=== PATIENT | male | born 1945 | race Caucasian/White ===

== ENCOUNTER 2018-02-12 12:00 | Inpatient (IN) ==
[2018-03-23] MEDS ORDERED: Metoprolol Tartrate 25 MG Tablet PO SCH (05:00)
[2018-03-23] MEDS ORDERED: Insulin Regular (For Infusion) 100 UNIT in Sodium Chlor 0.9% Inj 99 ML IV.CONT PRN ×2 (06:19→11:46)
[2018-03-23] MEDS ORDERED: Dextrose 50% in Water 50 ML Vial IV.PUSH PRN ×2 (06:19→11:46)
[2018-03-23] MEDS ORDERED: Chlorhexidine Gluconate 2% 1 Pack (2 Cloths) TOPICAL ONE (06:28)
[2018-03-23] MEDS ORDERED: Metoprolol Tartrate 25 MG Tablet PO ONE (06:28)
[2018-03-23] MEDS ORDERED: Sodium Chloride 0.9% Irr Bot 1,000 ML, Vancomycin Inj 1,000 MG IRRIGATION SCH ×2 (06:30)
[2018-03-23] MEDS ORDERED: Sodium Chlor 0.9% Inj 77.5 ML, Papaverine Inj 60 MG, Nitroglycerin Inj 100 MCG, dilTIAZ... IRRIGATION SCH ×3 (06:30)
[2018-03-23] MEDS ORDERED: Sodium Chlor 0.9% Inj 500 ML IV.SIG ONE (06:30)
[2018-03-23] MEDS ORDERED: Chlorhexidine 4% Topical 120 APPLIC/120 ML Bottle TOPICAL SCH (06:30)
[2018-03-23] MEDS ORDERED: Heparin - SQ 10,000 UNITS/ML Vial ONE ×2 (06:39)
[2018-03-23] MEDS ORDERED: MethylPREDNISolone Sod Succinate Inj 125 MG/2 ML Vial ONE (06:39)
[2018-03-23] MEDS ORDERED: Vancomycin Inj 1,500 MG in Sodium Chlor 0.9% Inj 250 ML IV.SIG SCH (07:00)
[2018-03-23] MEDS ORDERED: Vancomycin Inj 1,500 MG in Sodium Chlor 0.9% Inj 500 ML IV.SIG SCH (07:00)
[2018-03-23] MEDS ORDERED: Albumin Human 25% Inj 50 ML IV.SIG ONE (07:24)
[2018-03-23] MEDS ORDERED: Cardioplegic Irr Soln 2,000 ML IRRIGATION ONE (07:24)
[2018-03-23] MEDS ORDERED: Calcium Chloride Inj 1 GM/10 ML Syringe ONE (07:25)
[2018-03-23] MEDS ORDERED: Heparin 10,000 UNITS/10 ML Vial (for IV use) ONE (07:25)
[2018-03-23] MEDS ORDERED: Potassium Chloride Inj 40 MEQ/20 ML Vial ONE (07:26)
[2018-03-23] MEDS ORDERED: Potassium Chlor 20 mEq Premix 20 MEQ/100 ML PIGGYBACK IV.SIG PRN ×3 (11:46)
[2018-03-23] MEDS ORDERED: fentaNYL Citrate Inj 100 MCG/2 ML Ampul IV.PUSH PRN (11:46)
[2018-03-23] MEDS ORDERED: Metoprolol Inj 5 MG/5 ML Vial IV.PUSH PRN (11:46)
[2018-03-23] MEDS ORDERED: Post-op Orders (for Pharmacy) OTHER STA (11:46)
[2018-03-23] MEDS ORDERED: Calcium Chloride Inj 1 GM/10 ML Syringe IV.PUSH PRN (11:46)
[2018-03-23] MEDS ORDERED: Dexmedetomidine Inj 200 MCG in Sodium Chlor 0.9% Inj 48 ML IV.CONT PRN (11:46)
[2018-03-23] MEDS ORDERED: Albumin Human 5% Inj 250 ML IV.SIG PRN (11:46)
[2018-03-23] MEDS ORDERED: Magnesium Sulfate Inj 2 GM in Sodium Chlor 0.9% Inj 96 ML IV.SIG PRN ×4 (11:46)
[2018-03-23] MEDS ORDERED: Calcium Chloride Inj 1 GM in Sodium Chlor 0.9% Inj 100 ML IV.SIG PRN (11:46)
[2018-03-23] MEDS ORDERED: RESP: Racemic Epinephrine 2.25% 0.5 ML Neb NEB PRN (11:46)
[2018-03-23] MEDS ORDERED: Clevidipine Inj 25 MG/50 ML VIAL IV.CONT PRN (11:46)
--- NOTE | 2018-03-23 11:51 | P.OP ---
- Preoperative Diagnosis (1) CAD (coronary artery disease) (2) Combined systolic and diastolic congestive heart failure (3) Angina pectoris Postoperative Diagnosis: same Date of procedure: 03/23/18 Procedure: CABG x 4 VACA to LAD - fair to poor SVG to OM1 - fair SVG to OM2 - fair SVG to PDA - fair EVH Anesthesia: MICHELE Surgeon: Gloria Glez MD [employer] Bpm Developer: Akbar Pisano Pathology: none sent Operation and Findings: The risks, benefits, complications, treatment options, and expected outcomes were discussed with the patient. The possibilities of reaction to medication, pulmonary aspiration, perforation of viscus, bleeding, recurrent infection, the need for additional procedures, failure to diagnose a condition, and creating a complication requiring transfusion or operation were discussed with the patient. The patient concurred with the proposed plan, giving informed consent. The site of surgery properly noted/marked. The patient was taken to Operating Room, identified as Louis Garcia and the procedure verified as CABG, EVH, CHHAYA. A Time Out was held and the above information confirmed. Standard monitoring lines and Goldman catheter were placed. General anesthesia was induced. The patient was prepped and draped in a sterile fashion. A median sternotomy was performed and electrocautery was used to obtain hemostasis. The left internal mammary artery was procured as a pedicle from the 7th rib to the 1st rib in the usual manner. Simultaneously left greater saphenous vein was procured from the left leg using a minimally invasive endoscopic technique. The vein was prepared for anastomosis and the leg wound was irrigated and closed in 2 layers. The pericardium was opened and a pericardial sling was created using interrupted 0 silk sutures. The patient was heparinized for cardiopulmonary bypass and the distal mammary pedicle was instrumented for anastomosis. The heart was instrumented for cardiopulmonary bypass in the usual manner. Antegrade blood cardioplegia was employed. The patient was placed on cardiopulmonary bypass. An aortic cross-clamp was applied and the heart was arrested using cold blood cardioplegia. Antegrade cardioplegia was administered after he each anastomosis. After adequate arrest, the distal right coronary circulation was investigated and the PDA was opened with a [place] blade and found to be a 1 millimeter diffusely diseased fair target. Saphenous vein was approximated to the PDA artery using a running 7 0 Prolene suture. The graft was measured for length and orientation and the proximal anastomosis was constructed to the ascending aorta using a running 5 0 Prolene suture after creating an aortotomy with a 5 millimeter punch. The OM2 artery was opened with a [place] blade and found to be a 1 millimeter diffusely diseased fair target. Saphenous vein was approximated to the OM2 artery using a running 7 0 Prolene suture. The graft was measured for length and orientation and the proximal anastomosis was constructed to the ascending aorta using a running 5 0 Prolene suture after creating an aortotomy with a 5 millimeter punch. The 1st circumflex marginal artery was then opened with a [place] blade and found to be a 1.5 millimeter fair target. Saphenous vein was approximated to the OM1 artery using a running 7 0 Prolene suture. The graft was measured for length and orientation and was suspended from the pericardium. The distal LAD was opened with a [place] blade and found to be a 1.5 diffusely diseased fair target. The left internal mammary artery was approximated to the LAD using a running 7 0 Prolene suture. The pedicle was attached to the epicardium using interrupted 5 0 silk suture. The patient was systemically rewarmed and received a hotshot dose of warm blood cardioplegia. The aorta was vented and the proximal anastomosis to the OM1 graft was accomplished using a running 5 0 Prolene suture after creating an aortotomy was a 5 millimeter punch. The cross-clamp was removed and all proximal and distal anastomoses were examined for hemostasis. The patient was weaned from cardiopulmonary bypass. Protamine was given. There was no adverse reaction. Decannulation was carried out without incident. Wound was checked for hemostasis which was obtained using electrocautery. A 36 [place] mediastinal and 32 [place] left pleural chest tubes were placed and secured to the skin with 0 silk suture. The sternum was closed with stainless steel wire. The fascia was closed with 1. PDS. The subcutaneous tissue was closed using a running 2-0 Vicryl suture. The skin was closed with 4-0 Monocryl. Sterile dressings were placed. At the end of the operation, all sponge, instruments, and needle counts were correct. The patient was transferred to the CVICU in stable condition. Findings: EF improved from ~25% to ~40% after revascularization XC: 78 min CPB: 90 min Drains: mediastinal x 1 pleural x 1 Complications: none
[2018-03-23] MEDS ORDERED: Potassium Chlor 40 mEq Premix 40 MEQ/100 ML PIGGYBACK ONE (12:19)
[2018-03-23] MEDS ORDERED: fentaNYL Citrate Inj 250 MCG/5 ML Ampul ONE ×2 (12:53)
--- NOTE | 2018-03-23 13:40 | XR ---
EXAM DATE: 03/23/2018 1:37 PM EST AGE/SEX: 72 years / Male INDICATIONS: Cardiac Disease. CLINICAL DATA: This is the patient's initial encounter. Patient reports that signs and symptoms have been present for 1 day and indicates a pain score of Nonresponsive. MEDICAL/SURGICAL HISTORY: Non-responsive. Non-responsive. [place] [facility] [place]. . FINDINGS: Nasogastric tube across the GE junction. Left chest tubes in place without pneumothorax. Sternal wires previous bypass are noted The heart and pulmonary vascularity are normal. CONCLUSION: Satisfactory postoperative chest Electronically signed by: Servando Nugent MD Board Certified Radiologist 03/23/2018 1:39 PM EST
[2018-03-23] MEDS: Amiodarone 200 MG Tablet PO SCH ×2 (14:43→22:05)
[2018-03-23] MEDS: Vancomycin Inj 1,000 MG in Sodium Chlor 0.9% Inj 250 ML IV.SIG SCH (20:13)
[2018-03-24 05:08] LABS: Hematocrit 29.6 % (39.0-51.0); Hemoglobin 10.3 gm/dL (13.0-17.0); Mean Corpuscular HGB Conc 34.7 % (32.0-36.0); Mean Corpuscular Hemoglobin 31.2 pg (27.0-34.0); Mean Platelet Volume 7.6 fL (7.0-11.0); Platelet Count 91 th/mm3 (150-450); Red Blood Count 3.29 mil/mm3 (4.50-5.90); Red Cell Distribution Width 14.6 % (11.6-17.2); White Blood Count 15.7 th/mm3 (4.0-11.0)
--- NOTE | 2018-03-24 05:35 | XR ---
EXAM DATE: 03/24/2018 5:21 AM EST AGE/SEX: 72 years / Male INDICATIONS: Post CABG. CLINICAL DATA: This is the patient's subsequent encounter. Patient reports that signs and symptoms h ave been present for 4 - 6 days and indicates a pain score of 0/10. MEDICAL/SURGICAL HISTORY: Hypertension. Coronary artery disease. CABG. Chest tube, left. [place] [facility] [place] 1[place] SINGLE [place] 03/23/2018. . FINDINGS: A single AP view of the chest demonstrates no interval change. Left subclavian central line, left tho racostomy tube, subxiphoid thoracostomy tube, and median sternotomy wires. Heart is mildly enlarged. No pneumothorax. Mild consolidation within both lung bases which is stable. No effusions. CONCLUSION: Mild bibasilar consolidation. No pneumothorax. Electronically signed by: Brandon Lamas MD Board Certified Radiologist 03/24/2018 5:34 AM EST
[2018-03-24 05:37] LABS: Anion Gap 9 meq/L (5-15); Blood Urea Nitrogen 17 mg/dL (7-18); Calcium 8.4 mg/dL (8.5-10.1); Carbon Dioxide 24.3 meq/L (21.0-32.0); Chloride 108 meq/L (98-107); Glomerular Filtration Rate Greater Than 89 mL/min (>89); Glucose,Random 110 mg/dL (74-106); Potassium 3.9 meq/L (3.5-5.1); Sodium 141 meq/L (136-145)
[2018-03-24] MEDS: Amiodarone 200 MG Tablet PO SCH ×3 (06:34→21:04)
--- NOTE | 2018-03-24 08:11 | P.PNCV ---
- Note Subjective/Hospital Course: 72/ m recent [facility] 01/29/18 70% LM 100% Prox LAD, CX 80%, OM 95% , RCA 100% EF 30%m seen in [facility] office by Dr Glez , requested rescheduling of CABG 2/2 family issues . Now being electively admitted for surgery PMH: ischemic cardiomyopathy, CHF, HLP, HTN, DM EF 25-30% has declined Life vest in past 03/23 surgery : CABG x 4 Objective: Vital Signs - 24 hr 03/23/18 12:36 03/23/18 12:38 03/23/18 13:45 Temperature 96.9 F L 96.9 F L Pulse Rate 73 Respiratory Rate 14 14 Blood Pressure 88/50 L Pulse Oximetry 99 97 03/23/18 14:09 03/23/18 15:00 03/23/18 15:30 Temperature 98.3 F Pulse Rate 74 Respiratory Rate 14 10 L 18 Blood Pressure 103/60 Pulse Oximetry 99 99 98 03/23/18 16:10 03/23/18 17:50 03/23/18 18:54 Temperature Pulse Rate 90 88 Respiratory Rate 18 Blood Pressure Pulse Oximetry 97 03/23/18 19:00 03/23/18 20:40 03/23/18 21:00 Temperature 97.8 F Pulse Rate 85 90 86 Respiratory Rate 20 20 Blood Pressure 125/52 L Pulse Oximetry 96 03/23/18 23:00 03/24/18 00:00 03/24/18 01:00 Temperature 98.2 F Pulse Rate 88 93 H Respiratory Rate 21 21 Blood Pressure 105/42 L Pulse Oximetry 99 03/24/18 03:00 03/24/18 03:56 03/24/18 05:00 Temperature 97.9 F Pulse Rate 93 H 100 H 100 H Respiratory Rate 21 14 Blood Pressure 96/49 L Pulse Oximetry 99 Labs: Laboratory Results - last 12 hr 03/23/18 03/23/18 03/23/18 06:15 19:47 21:54 WBC RBC Hgb Hct MCV MCH MCHC RDW Plt Count MPV Sodium Potassium Chloride Carbon Dioxide Anion Gap BUN Creatinine Estimated GFR POC Glucose 116 H 82 Random Glucose Calcium Magnesium Blood Type A Positive Antibody Screen Negative MTS Gel Crossmatch See Detail 03/23/18 03/24/18 03/24/18 23:32 04:35 04:35 WBC 15.7 H RBC 3.29 L Hgb 10.3 L Hct 29.6 L MCV 90.0 MCH 31.2 MCHC 34.7 RDW 14.6 Plt Count 91 L MPV 7.6 Sodium 141 Potassium 3.9 Chloride 108 H Carbon Dioxide 24.3 Anion Gap 9 BUN 17 Creatinine 0.57 L Estimated GFR Greater than 89 POC Glucose 99 Random Glucose 110 H Calcium 8.4 L Magnesium 2.0 Blood Type Antibody Screen MTS Gel Crossmatch 03/24/18 03/24/18 05:06 07:28 WBC RBC Hgb Hct MCV MCH MCHC RDW Plt Count MPV Sodium Potassium Chloride Carbon Dioxide Anion Gap BUN Creatinine Estimated GFR POC Glucose 83 83 Random Glucose Calcium Magnesium Blood Type Antibody Screen MTS Gel Crossmatch Result Diagrams: 03/24/18 04:35 03/24/18 04:35
[2018-03-24] MEDS ORDERED: Dextrose 50% in Water 50 ML Vial IV.PUSH PRN (08:24)
[2018-03-24] MEDS ORDERED: Bisacodyl 10 MG Supp RECTAL PRN (08:24)
[2018-03-24] MEDS: Vancomycin Inj 1,000 MG in Sodium Chlor 0.9% Inj 250 ML IV.SIG SCH ×2 (08:48→21:05)
--- NOTE | 2018-03-24 09:09 | P.DIET ---
Objective - Diagnosis CABGx 5 03/23/2018 Assessment Assessment: Patient Navigator to provide education. Consult RD if complexities with diet education arise
[2018-03-24] MEDS: Carvedilol 6.25 MG Tablet PO SCH ×2 (09:39→21:04)
[2018-03-24] MEDS: Multivitamin/Minerals Therapeutic Tablet PO SCH (09:39)
[2018-03-24] MEDS: Insulin NovoLOG Aspart Correctional Sugar Inj SQ SCH ×4 (09:40→21:22)
--- NOTE | 2018-03-24 17:14 | P.PNCV ---
- Note Subjective/Hospital Course: 72/ m recent [facility] 01/29/18 70% LM 100% Prox LAD, CX 80%, OM 95% , RCA 100% EF 30%m seen in [facility] office by Dr Glez , requested rescheduling of CABG 2/2 family issues . Now being electively admitted for surgery PMH: ischemic cardiomyopathy, CHF, HLP, HTN, DM EF 25-30% has declined Life vest in past 03/23 surgery : Preoperative Diagnosis (1) CAD (coronary artery disease (2) Combined systolic and diastolic congestive heart failure (3) Angina pectoris Procedure: CABG x 4 VACA to LAD - fair to poor SVG to OM1 - fair SVG to OM2 - fair SVG to PDA - fair EVH crystalloid 2300cc, 500cc celll saver, EBL 1000cc 03/24 extubated after surgery restarted on entresto / post EF 40% on coreg on Amio, ASA, statin transfer to stepdown unit Objective: Vital Signs - 24 hr 03/23/18 17:50 03/23/18 18:54 03/23/18 19:00 Temperature 97.8 F Pulse Rate 88 85 Respiratory Rate 20 Blood Pressure 125/52 L Pulse Oximetry 97 96 03/23/18 20:40 03/23/18 21:00 03/23/18 23:00 Temperature 98.2 F Pulse Rate 90 86 88 Respiratory Rate 20 21 Blood Pressure 105/42 L Pulse Oximetry 99 03/24/18 00:00 03/24/18 01:00 03/24/18 03:00 Temperature 97.9 F Pulse Rate 93 H 93 H Respiratory Rate 21 21 Blood Pressure 96/49 L Pulse Oximetry 99 03/24/18 03:56 03/24/18 05:00 03/24/18 07:00 Temperature 98.7 F Pulse Rate 100 H 100 H 100 H Respiratory Rate 14 16 Blood Pressure Pulse Oximetry 99 03/24/18 11:00 03/24/18 12:00 03/24/18 13:00 Temperature 100 F H Pulse Rate 110 H 103 H 98 H Respiratory Rate 17 Blood Pressure 100/52 L Pulse Oximetry 100 03/24/18 13:32 03/24/18 14:00 03/24/18 15:00 Temperature 98.8 F Pulse Rate 103 H 103 H 105 H Respiratory Rate 18 16 Blood Pressure 97/54 L Pulse Oximetry 99 01/08/19 16:00 Temperature Pulse Rate 94 H Respiratory Rate Blood Pressure Pulse Oximetry GENERAL: A&O x 3 SKIN: Warm and dry. prevena dressing to chest , incision intact to left leg HEAD: Normocephalic. EYES: No scleral icterus. No injection or drainage. NECK: Supple, trachea midline. No JVD or lymphadenopathy. CARDIOVASCULAR: Regular rate and rhythm without murmurs, gallops, or rubs. RESPIRATORY: Breath sounds equal bilaterally. No accessory muscle use. few crackles in bases GASTROINTESTINAL: Abdomen soft, non-tender, nondistended. MUSCULOSKELETAL: No cyanosis, or edema. BACK: Nontender without obvious deformity. No CVA tenderness. Labs: Laboratory Results - last 12 hr 03/23/18 03/24/18 03/24/18 06:15 04:35 04:35 WBC 15.7 H RBC 3.29 L Hgb 10.3 L Hct 29.6 L MCV 90.0 MCH 31.2 MCHC 34.7 RDW 14.6 Plt Count 91 L MPV 7.6 Sodium 141 Potassium 3.9 Chloride 108 H Carbon Dioxide 24.3 Anion Gap 9 BUN 17 Creatinine 0.57 L Estimated GFR Greater than 89 POC Glucose Random Glucose 110 H Calcium 8.4 L Magnesium 2.0 Blood Type A Positive Antibody Screen Negative MTS Gel Crossmatch See Detail 03/24/18 03/24/18 03/24/18 07:28 09:32 14:34 WBC RBC Hgb Hct MCV MCH MCHC RDW Plt Count MPV Sodium Potassium Chloride Carbon Dioxide Anion Gap BUN Creatinine Estimated GFR POC Glucose 83 116 H 193 H Random Glucose Calcium Magnesium Blood Type Antibody Screen MTS Gel Crossmatch Result Diagrams: 03/24/18 04:35 03/24/18 04:35 Telemetry: NSR - Plan (1) S/P CABG x 4 Plan: Neuro: avoid Benzo pain control Resp : pulm toileting nebs ezpap , wean 02 as tolerated CV: restart entresto, add coreg gentle diuresis on amio ASA GI: on GI prophy cardiac/ diabetic diet ENDO: weaned off insulin gtt, on insulin sliding scale PT/ OOB transferred to stepdown
[2018-03-24] MEDS: Docusate Sodium 100 MG Capsule PO SCH (21:05)
[2018-03-25] MEDS: Insulin NovoLOG Aspart Correctional Sugar Inj SQ SCH ×6 (02:37→21:49)
[2018-03-25 05:18] LABS: Baso % (Auto) 0.1 % (0.0-2.0); Eos % (Auto) 0.2 % (0.0-4.0); Hematocrit 27.1 % (39.0-51.0); Hemoglobin 9.4 gm/dL (13.0-17.0); Lymph # (Auto) 0.7 th/mm3 (1.0-4.8); Lymph % (Auto) 7.1 % (9.0-44.0); Mean Corpuscular HGB Conc 34.7 % (32.0-36.0); Mean Corpuscular Hemoglobin 31.8 pg (27.0-34.0); Mean Corpuscular Volume 91.5 fL (80.0-100.0); Mean Platelet Volume 7.7 fL (7.0-11.0); Mono # (Auto) 0.8 th/mm3 (0.0-0.9); Mono % (Auto) 7.9 % (0.0-8.0); Neut # (Auto) 8.7 th/mm3 (1.8-7.7); Neut % (Auto) 84.7 % (16.0-70.0); Platelet Count 89 th/mm3 (150-450); Red Blood Count 2.96 mil/mm3 (4.50-5.90); Red Cell Distribution Width 15.1 % (11.6-17.2); White Blood Count 10.3 th/mm3 (4.0-11.0)
[2018-03-25 05:46] LABS: Anion Gap 5 meq/L (5-15); Blood Urea Nitrogen 24 mg/dL (7-18); Calcium 8.4 mg/dL (8.5-10.1); Carbon Dioxide 27.5 meq/L (21.0-32.0); Chloride 105 meq/L (98-107); Glomerular Filtration Rate Greater Than 89 mL/min (>89); Glucose,Random 114 mg/dL (74-106); Magnesium 2.3 mg/dL (1.5-2.5); Potassium 4.2 meq/L (3.5-5.1); Sodium 137 meq/L (136-145)
[2018-03-25 07:13] LABS: Platelet Morphology Normal (Normal)
[2018-03-25] MEDS: Docusate Sodium 100 MG Capsule PO SCH ×2 (08:52→21:48)
[2018-03-25] MEDS: Multivitamin/Minerals Therapeutic Tablet PO SCH (08:52)
[2018-03-25] MEDS: Carvedilol 6.25 MG Tablet PO SCH (08:53)
[2018-03-25] MEDS: Polyethylene Glycol 3350 17 GM Packet PO SCH (08:53)
[2018-03-25] MEDS: Amiodarone 200 MG Tablet PO SCH ×3 (14:22→21:48)
[2018-03-25] MEDS: Acetaminophen 325 MG Tablet PO PRN (14:23)
--- NOTE | 2018-03-25 14:38 | P.PNCV ---
- Note Subjective/Hospital Course: 72/ m recent [facility] [place] 01/29/18 70% LM 100% Prox LAD, CX 80%, OM 95% , RCA 100% EF 30%m seen in [facility] office by Dr Glez , requested rescheduling of CABG 2/2 family issues . Now being electively admitted for surgery PMH: ischemic cardiomyopathy, CHF, HLP, HTN, DM EF 25-30% has declined Life vest in past 03/23 surgery : Preoperative Diagnosis (1) CAD (coronary artery disease (2) Combined systolic and diastolic congestive heart failure (3) Angina pectoris Procedure: CABG x 4 VACA to LAD - fair to poor SVG to OM1 - fair SVG to OM2 - fair SVG to PDA - fair EVH crystalloid 2300cc, 500cc celll saver, EBL 1000cc 03/24 extubated after surgery restarted on entresto / post EF 40% on coreg on Amio, ASA, statin transfer to stepdown unit 03/25 pt on room air chest tube drained > 200/ 12 hrs / will leave in place eval for removal in am Objective: Vital Signs - 24 hr 03/24/18 15:00 03/24/18 16:00 03/24/18 17:00 Temperature 98.8 F Pulse Rate 105 H 94 H 107 H Respiratory Rate 16 Blood Pressure 97/54 L Pulse Oximetry 99 03/24/18 18:00 03/24/18 19:00 03/24/18 20:00 Temperature 98.9 F Pulse Rate 105 H 112 H 113 H Respiratory Rate 18 Blood Pressure 97/60 L Pulse Oximetry 98 98 03/24/18 21:00 03/24/18 21:47 03/24/18 22:00 Temperature Pulse Rate 109 H 104 H 111 H Respiratory Rate 14 Blood Pressure Pulse Oximetry 97 03/24/18 22:43 03/24/18 23:00 03/25/18 00:00 Temperature 98.5 F Pulse Rate 107 H 105 H Respiratory Rate 17 17 17 Blood Pressure 95/59 L Pulse Oximetry 98 03/25/18 01:00 03/25/18 02:00 03/25/18 02:16 Temperature Pulse Rate 98 H 96 H 94 H Respiratory Rate Blood Pressure Pulse Oximetry 03/25/18 02:37 03/25/18 03:00 03/25/18 04:00 Temperature Pulse Rate 98 H 93 H Respiratory Rate 17 17 Blood Pressure 102/56 L Pulse Oximetry 97 03/25/18 05:00 03/25/18 05:10 03/25/18 07:00 Temperature 97.9 F Pulse Rate 98 H 98 H 104 H Respiratory Rate 18 Blood Pressure 102/59 L Pulse Oximetry 99 03/25/18 08:00 03/25/18 08:28 03/25/18 09:00 Temperature Pulse Rate 93 H 97 H 96 H Respiratory Rate 18 Blood Pressure Pulse Oximetry 98 03/25/18 10:00 03/25/18 11:00 03/25/18 12:00 Temperature 98.1 F Pulse Rate 84 85 86 Respiratory Rate 18 Blood Pressure 83/57 L Pulse Oximetry 96 03/25/18 13:00 Temperature Pulse Rate 82 Respiratory Rate Blood Pressure Pulse Oximetry GENERAL: A&O x 3 SKIN: Warm and dry. prevena in place to chest , incision intact to left leg HEAD: Normocephalic. EYES: No scleral icterus. No injection or drainage. NECK: Supple, trachea midline. No JVD or lymphadenopathy. CARDIOVASCULAR: Regular rate and rhythm without murmurs, gallops, or rubs. RESPIRATORY: Breath sounds equal bilaterally. No accessory muscle use. chest tube in place, no air leak GASTROINTESTINAL: Abdomen soft, non-tender, nondistended. MUSCULOSKELETAL: No cyanosis, or edema. BACK: Nontender without obvious deformity. No CVA tenderness. Labs: Laboratory Results - last 12 hr 03/25/18 03/25/18 03/25/18 05:00 05:00 06:19 WBC 10.3 RBC 2.96 L Hgb 9.4 L Hct 27.1 L MCV 91.5 MCH 31.8 MCHC 34.7 RDW 15.1 Plt Count 89 L MPV 7.7 Prelim Diff (Auto) Slide review pending Neut % (Auto) 84.7 H Lymph % (Auto) 7.1 L [place] % (Auto) 7.9 Eos % (Auto) 0.2 Baso % (Auto) 0.1 Neut # (Auto) 8.7 H Lymph # (Auto) 0.7 L [place] # (Auto) 0.8 Eos # (Auto) 0.0 Baso # (Auto) 0.0 WBC Differential . Diff Scan Auto diff confirmed Differential Comment . Platelet Estimate Low L Platelet Morphology Normal Sodium 137 Potassium 4.2 Chloride 105 Carbon Dioxide 27.5 Anion Gap 5 BUN 24 H Creatinine 0.65 Estimated GFR Greater than 89 POC Glucose 116 H Random Glucose 114 H Calcium 8.4 L Magnesium 2.3 03/25/18 03/25/18 08:17 12:10 WBC RBC Hgb Hct MCV MCH MCHC RDW Plt Count MPV Prelim Diff (Auto) Neut % (Auto) Lymph % (Auto) [place] % (Auto) Eos % (Auto) Baso % (Auto) Neut # (Auto) Lymph # (Auto) [place] # (Auto) Eos # (Auto) Baso # (Auto) WBC Differential Diff Scan Differential Comment Platelet Estimate Platelet Morphology Sodium Potassium Chloride Carbon Dioxide Anion Gap BUN Creatinine Estimated GFR POC Glucose 111 H 136 H Random Glucose Calcium Magnesium Result Diagrams: 03/25/18 05:00 03/25/18 05:00 Telemetry: NSR - Plan (4) S/P CABG x 4 Plan: Neuro: avoid Benzo pain control Resp : pulm toileting nebs ezpap , on room air CV: entresto, add coreg on amio ASA GI: on GI prophy cardiac/ diabetic diet ENDO: , on insulin sliding scale Heme: monitor HGB PT/ OOB
[2018-03-26] MEDS ORDERED: Sod Phosphate/Sod Biphosphate (Adult) Enema 133 ML Bottle RECTAL PRN (06:00)
[2018-03-26] MEDS: Docusate Sodium 100 MG Capsule PO SCH ×2 (08:30→21:43)
[2018-03-26] MEDS: Multivitamin/Minerals Therapeutic Tablet PO SCH (08:30)
[2018-03-26] MEDS: Amiodarone 200 MG Tablet PO SCH ×2 (08:30→21:42)
[2018-03-26] MEDS: Polyethylene Glycol 3350 17 GM Packet PO SCH (08:31)
[2018-03-26] MEDS: Insulin NovoLOG Aspart Correctional Sugar Inj SQ SCH ×4 (08:31→21:42)
--- NOTE | 2018-03-26 13:51 | P.PNCV ---
- Note Subjective/Hospital Course: 72/ m recent [facility] 01/29/18 70% LM 100% Prox LAD, CX 80%, OM 95% , RCA 100% EF 30%m seen in office by Dr Glez , requested rescheduling of CABG 2/2 family issues . Now being electively admitted for surgery PMH: ischemic cardiomyopathy, CHF, HLP, HTN, DM EF 25-30% has declined Life vest in past 03/23 surgery : Preoperative Diagnosis (1) CAD (coronary artery disease (2) Combined systolic and diastolic congestive heart failure (3) Angina pectoris Procedure: CABG x 4 VACA to LAD - fair to poor SVG to OM1 - fair SVG to OM2 - fair SVG to PDA - fair EVH crystalloid 2300cc, 500cc celll saver, EBL 1000cc 03/24 extubated after surgery restarted on entresto / post EF 40% on coreg on Amio, ASA, statin transfer to stepdown unit 03/25 pt on room air chest tube drained > 200/ 12 hrs / will leave in place eval for removal in am 03/26 BP improved, pt feeling better CT 200cc/12 watery serous drainage gentle diuresis hopefully dc tube in am Objective: Vital Signs - 24 hr 03/25/18 14:00 03/25/18 15:00 03/25/18 15:02 Temperature 98 F Pulse Rate 82 88 91 H Respiratory Rate 18 18 Blood Pressure 96/52 L Pulse Oximetry 96 03/25/18 16:00 03/25/18 17:00 03/25/18 18:00 Temperature Pulse Rate 100 H 96 H 90 Respiratory Rate Blood Pressure Pulse Oximetry 03/25/18 19:00 03/25/18 20:00 03/25/18 21:00 Temperature 98.9 F Pulse Rate 86 86 86 Respiratory Rate 17 Blood Pressure 92/52 L Pulse Oximetry 98 98 03/25/18 21:07 03/25/18 22:00 03/25/18 23:00 Temperature 98.6 F Pulse Rate 84 92 H 82 Respiratory Rate 12 16 Blood Pressure 88/52 L Pulse Oximetry 97 100 03/26/18 00:00 03/26/18 01:00 03/26/18 02:00 Temperature Pulse Rate 80 86 80 Respiratory Rate Blood Pressure Pulse Oximetry 03/26/18 03:00 03/26/18 04:00 03/26/18 05:00 Temperature 98 F Pulse Rate 97 H 87 80 Respiratory Rate 18 Blood Pressure 107/63 Pulse Oximetry 98 03/26/18 07:00 03/26/18 08:00 03/26/18 08:44 Temperature 98.1 F Pulse Rate 97 H 100 H 92 H Respiratory Rate 18 16 Blood Pressure 107/57 L Pulse Oximetry 98 98 03/26/18 09:00 03/26/18 10:00 03/26/18 11:00 Temperature 98.4 F Pulse Rate 98 H 92 H 89 Respiratory Rate 18 Blood Pressure 100/53 L Pulse Oximetry 99 03/26/18 12:00 03/26/18 13:00 Temperature Pulse Rate 90 85 Respiratory Rate Blood Pressure Pulse Oximetry GENERAL: A&O x 3 SKIN: Warm and dry. prevena dressing to chest HEAD: Normocephalic. EYES: No scleral icterus. No injection or drainage. NECK: Supple, trachea midline. No JVD or lymphadenopathy. CARDIOVASCULAR: Regular rate and rhythm without murmurs, gallops, or rubs. RESPIRATORY: Breath sounds equal bilaterally. No accessory muscle use. diminished in bases/ chest tube no air leak/ drained 200cc/ 12 hrs GASTROINTESTINAL: Abdomen soft, non-tender, nondistended. MUSCULOSKELETAL: No cyanosis, or edema. BACK: Nontender without obvious deformity. No CVA tenderness. Labs: Laboratory Results - last 12 hr 03/23/18 03/26/18 03/26/18 06:15 08:26 11:57 POC Glucose 103 122 H MTS Gel Crossmatch See Detail Result Diagrams: 03/25/18 05:00 03/25/18 05:00 Telemetry: NSR - Plan (4) S/P CABG x 4 Plan: Neuro: stable pain control Resp : pulm toileting nebs ezpap , on room air CV: entresto, coreg on amio ASA gentle diuresis GI: on GI prophy cardiac/ diabetic diet ENDO: , on insulin sliding scale Heme: monitor HGB / labs in am PT/ OOB
[2018-03-27 04:48] LABS: Hematocrit 26.6 % (39.0-51.0); Hemoglobin 9.3 gm/dL (13.0-17.0); Mean Corpuscular Volume 91.3 fL (80.0-100.0); Mean Platelet Volume 7.6 fL (7.0-11.0); Platelet Count 118 th/mm3 (150-450); Red Blood Count 2.91 mil/mm3 (4.50-5.90); Red Cell Distribution Width 14.5 % (11.6-17.2); White Blood Count 7.3 th/mm3 (4.0-11.0)
[2018-03-27 05:14] LABS: Anion Gap 7 meq/L (5-15); Blood Urea Nitrogen 21 mg/dL (7-18); Calcium 8.4 mg/dL (8.5-10.1); Carbon Dioxide 28.4 meq/L (21.0-32.0); Chloride 102 meq/L (98-107); Glomerular Filtration Rate Greater Than 89 mL/min (>89); Glucose,Random 89 mg/dL (74-106); Magnesium 2.1 mg/dL (1.5-2.5); Potassium 4.1 meq/L (3.5-5.1); Sodium 137 meq/L (136-145)
[2018-03-27] MEDS: Polyethylene Glycol 3350 17 GM Packet PO SCH (08:45)
[2018-03-27] MEDS: Amiodarone 200 MG Tablet PO SCH ×2 (08:45→21:40)
[2018-03-27] MEDS: Docusate Sodium 100 MG Capsule PO SCH ×2 (08:46→21:39)
[2018-03-27] MEDS: Insulin NovoLOG Aspart Correctional Sugar Inj SQ SCH ×4 (08:46→23:21)
[2018-03-27] MEDS: Multivitamin/Minerals Therapeutic Tablet PO SCH (08:46)
--- NOTE | 2018-03-27 10:24 | XR ---
EXAM DATE: 03/27/2018 10:20 AM EST AGE/SEX: 72 years / Male INDICATIONS: . High fluid output from chest tube post CABG. CLINICAL DATA: This is the patient's subsequent encounter. Patient reports that signs and symptoms h ave been present for 4 - 6 days and indicates a pain score of 4/10. MEDICAL/SURGICAL HISTORY: Hypercholesterolemia. Hypertension. CAD. Heart failure. CABG. [place] [facility] [place]. . FINDINGS: Left subclavian central line and left thoracostomy tube are stable in position. A midline chest tube is also noted. The lungs are symmetrically aerated and grossly clear. Cardiac contours are satisfacto ry. CONCLUSION: Satisfactory chest appearance. Electronically signed by: Akbar Barrera MD Board Certified Radiologist 03/27/2018 10:22 AM EST
--- NOTE | 2018-03-27 14:43 | P.PNCV ---
- Note Subjective/Hospital Course: 72/ m recent [facility] 01/29/18 70% LM 100% Prox LAD, CX 80%, OM 95% , RCA 100% EF 30%m seen in office by Dr Glez , requested rescheduling of CABG 2/2 family issues . Now being electively admitted for surgery PMH: ischemic cardiomyopathy, CHF, HLP, HTN, DM EF 25-30% has declined Life vest in past 03/23 surgery : Preoperative Diagnosis (1) CAD (coronary artery disease (2) Combined systolic and diastolic congestive heart failure (3) Angina pectoris Procedure: CABG x 4 VACA to LAD - fair to poor SVG to OM1 - fair SVG to OM2 - fair SVG to PDA - fair EVH crystalloid 2300cc, 500cc celll saver, EBL 1000cc 03/24 extubated after surgery restarted on entresto / post EF 40% on coreg on Amio, ASA, statin transfer to stepdown unit 03/25 pt on room air chest tube drained > 200/ 12 hrs / will leave in place eval for removal in am 03/26 BP improved, pt feeling better CT 200cc/12 watery serous drainage gentle diuresis hopefully dc tube in am 03/27 pt drained > 400cc serous drainage from chest tube yesterday HGB stable will diuresis / recheck labs in am Objective: Vital Signs - 24 hr 03/26/18 15:00 03/26/18 16:00 03/26/18 17:00 Temperature 98.1 F Pulse Rate 83 78 87 Respiratory Rate 18 Blood Pressure 88/51 L Pulse Oximetry 99 03/26/18 18:00 03/26/18 19:00 03/26/18 20:00 Temperature 98.6 F Pulse Rate 91 H 90 86 Respiratory Rate 17 Blood Pressure 106/57 L Pulse Oximetry 100 97 03/26/18 21:00 03/26/18 22:00 03/26/18 23:00 Temperature 98.4 F Pulse Rate 88 88 84 Respiratory Rate 18 Blood Pressure 94/54 L Pulse Oximetry 99 03/27/18 00:00 03/27/18 01:00 03/27/18 02:00 Temperature Pulse Rate 86 82 80 Respiratory Rate Blood Pressure Pulse Oximetry 03/27/18 03:00 03/27/18 04:00 03/27/18 05:00 Temperature 97.6 F Pulse Rate 89 86 89 Respiratory Rate 18 Blood Pressure 102/63 Pulse Oximetry 100 03/27/18 06:00 03/27/18 07:00 03/27/18 08:00 Temperature 97.9 F Pulse Rate 84 88 90 Respiratory Rate 18 Blood Pressure 123/58 L Pulse Oximetry 97 97 03/27/18 09:00 03/27/18 10:00 03/27/18 10:06 Temperature Pulse Rate 90 84 Respiratory Rate Blood Pressure Pulse Oximetry 97 03/27/18 11:00 03/27/18 12:00 03/27/18 13:00 Temperature 98.3 F Pulse Rate 85 86 86 Respiratory Rate 18 Blood Pressure 107/55 L Pulse Oximetry 100 03/27/18 14:00 Temperature Pulse Rate 88 Respiratory Rate Blood Pressure Pulse Oximetry GENERAL: A&O x 3 SKIN: Warm and dry. prevena dressing to chest , incision intact to left leg HEAD: Normocephalic. EYES: No scleral icterus. No injection or drainage. NECK: Supple, trachea midline. No JVD or lymphadenopathy. CARDIOVASCULAR: Regular rate and rhythm without murmurs, gallops, or rubs. +1 edema lower ext RESPIRATORY: Breath sounds equal bilaterally. No accessory muscle use. chest tube no air leak / GASTROINTESTINAL: Abdomen soft, non-tender, nondistended. MUSCULOSKELETAL: No cyanosis, or edema. BACK: Nontender without obvious deformity. No CVA tenderness. Labs: Laboratory Results - last 12 hr 03/27/18 03/27/18 03/27/18 04:15 04:15 07:49 WBC 7.3 RBC 2.91 L Hgb 9.3 L Hct 26.6 L MCV 91.3 MCH 32.0 MCHC 35.0 RDW 14.5 Plt Count 118 L D MPV 7.6 Sodium 137 Potassium 4.1 Chloride 102 Carbon Dioxide 28.4 Anion Gap 7 BUN 21 H Creatinine 0.68 Estimated GFR Greater than 89 POC Glucose 94 Random Glucose 89 Calcium 8.4 L Magnesium 2.1 03/27/18 12:00 WBC RBC Hgb Hct MCV MCH MCHC RDW Plt Count MPV Sodium Potassium Chloride Carbon Dioxide Anion Gap BUN Creatinine Estimated GFR POC Glucose 123 H Random Glucose Calcium Magnesium Result Diagrams: 03/27/18 04:15 03/27/18 04:15 - Plan (4) S/P CABG x 4 Plan: Neuro: stable pain control Resp : pulm toileting nebs ezpap , on room air CV: entresto, coreg on amio ASA scheduled diuresis GI: on GI prophy cardiac/ diabetic diet ENDO: , on insulin sliding scale Heme: monitor HGB / labs in am PT/ OOB
[2018-03-28 05:04] LABS: Hematocrit 27.4 % (39.0-51.0); Hemoglobin 9.5 gm/dL (13.0-17.0); Mean Corpuscular HGB Conc 34.9 % (32.0-36.0); Mean Corpuscular Hemoglobin 31.9 pg (27.0-34.0); Mean Corpuscular Volume 91.6 fL (80.0-100.0); Mean Platelet Volume 7.5 fL (7.0-11.0); Platelet Count 156 th/mm3 (150-450); Red Blood Count 2.99 mil/mm3 (4.50-5.90); Red Cell Distribution Width 14.6 % (11.6-17.2); White Blood Count 7.4 th/mm3 (4.0-11.0)
[2018-03-28 05:08] LABS: Anion Gap 6 meq/L (5-15); Blood Urea Nitrogen 16 mg/dL (7-18); Calcium 8.1 mg/dL (8.5-10.1); Carbon Dioxide 29.6 meq/L (21.0-32.0); Chloride 103 meq/L (98-107); Glomerular Filtration Rate Greater Than 89 mL/min (>89); Glucose,Random 90 mg/dL (74-106); Potassium 4.3 meq/L (3.5-5.1); Sodium 139 meq/L (136-145)
[2018-03-28] MEDS: Polyethylene Glycol 3350 17 GM Packet PO SCH (08:36)
[2018-03-28] MEDS: Amiodarone 200 MG Tablet PO SCH ×2 (08:37→20:18)
[2018-03-28] MEDS: Docusate Sodium 100 MG Capsule PO SCH ×2 (08:37→20:30)
[2018-03-28] MEDS: Multivitamin/Minerals Therapeutic Tablet PO SCH (08:38)
[2018-03-28] MEDS: Insulin NovoLOG Aspart Correctional Sugar Inj SQ SCH ×4 (08:39→20:19)
--- NOTE | 2018-03-28 11:19 | P.PNCV ---
- Note CVT: Post Op Day #: 5 Subjective/Hospital Course: 72/ m recent [facility] 01/29/18 70% LM 100% Prox LAD, CX 80%, OM 95% , RCA 100% EF 30%m seen in office by Dr Glez , requested rescheduling of CABG 2/2 family issues . Now being electively admitted for surgery PMH: ischemic cardiomyopathy, CHF, HLP, HTN, DM EF 25-30% has declined Life vest in past 03/23 surgery : Preoperative Diagnosis (1) CAD (coronary artery disease (2) Combined systolic and diastolic congestive heart failure (3) Angina pectoris Procedure: CABG x 4 VACA to LAD - fair to poor SVG to OM1 - fair SVG to OM2 - fair SVG to PDA - fair EVH crystalloid 2300cc, 500cc celll saver, EBL 1000cc 03/24 extubated after surgery restarted on entresto / post EF 40% on coreg on Amio, ASA, statin transfer to stepdown unit 03/25 pt on room air chest tube drained > 200/ 12 hrs / will leave in place eval for removal in am 03/26 BP improved, pt feeling better CT 200cc/12 watery serous drainage gentle diuresis hopefully dc tube in am 03/27 pt drained > 400cc serous drainage from chest tube yesterday HGB stable will diuresis / recheck labs in am 03/28/18 No complaints, doing well ~250ml/12hrs from chest tubes Objective: Vital Signs - 24 hr 03/27/18 12:00 03/27/18 13:00 03/27/18 14:00 Temperature Pulse Rate 86 86 88 Respiratory Rate Blood Pressure Pulse Oximetry 03/27/18 15:00 03/27/18 16:00 03/27/18 17:00 Temperature 98.4 F Pulse Rate 93 H 78 86 Respiratory Rate 18 Blood Pressure 100/51 L Pulse Oximetry 100 03/27/18 18:00 03/27/18 19:00 03/27/18 20:00 Temperature 98.5 F Pulse Rate 86 90 92 H Respiratory Rate 20 Blood Pressure 98/57 L Pulse Oximetry 100 100 03/27/18 21:00 03/27/18 22:00 03/27/18 23:00 Temperature 97.8 F Pulse Rate 86 94 H 90 Respiratory Rate 18 Blood Pressure 123/64 Pulse Oximetry 100 03/28/18 00:00 03/28/18 01:00 03/28/18 02:00 Temperature Pulse Rate 90 84 82 Respiratory Rate Blood Pressure Pulse Oximetry 03/28/18 03:00 03/28/18 04:00 03/28/18 05:00 Temperature 98.4 F Pulse Rate 80 82 84 Respiratory Rate 16 Blood Pressure 123/64 Pulse Oximetry 97 03/28/18 06:00 03/28/18 07:00 03/28/18 08:00 Temperature 98.2 F Pulse Rate 86 84 Respiratory Rate 16 Blood Pressure 92/64 L Pulse Oximetry 98 98 Labs: Laboratory Results - last 12 hr 03/28/18 03/28/18 03/28/18 04:35 04:35 07:36 WBC 7.4 RBC 2.99 L Hgb 9.5 L Hct 27.4 L MCV 91.6 MCH 31.9 MCHC 34.9 RDW 14.6 Plt Count 156 D MPV 7.5 Sodium 139 Potassium 4.3 Chloride 103 Carbon Dioxide 29.6 Anion Gap 6 BUN 16 Creatinine 0.75 Estimated GFR Greater than 89 POC Glucose 111 H Random Glucose 90 Calcium 8.1 L Magnesium 2.0 Result Diagrams: 03/28/18 04:35 03/28/18 04:35 Imaging: Chest X-Ray 03/27/18 00:00 CONCLUSION: Satisfactory chest appearance. Cardiovascular: RRR Telemetry: NSR Pulmonary: CTA GI/: NABS Incision: dry and intact CT: as above - Plan (4) S/P CABG x 4 Plan: Neuro: stable pain control Resp : pulm toileting nebs ezpap , on room air CV: entresto, coreg on amio ASA scheduled diuresis GI: on GI prophy cardiac/ diabetic diet ENDO: , on insulin sliding scale Heme: monitor HGB / labs in am PT/ OOB D/C home after chest tube removal Chest tubes still draining too much to pull Diurese Encourage ambulation
[2018-03-28] MEDS: Acetaminophen 325 MG Tablet PO PRN ×2 (17:06→23:50)
[2018-03-29] MEDS: Docusate Sodium 100 MG Capsule PO SCH ×2 (09:07→20:57)
[2018-03-29] MEDS: Amiodarone 200 MG Tablet PO SCH ×2 (09:08→20:57)
[2018-03-29] MEDS: Multivitamin/Minerals Therapeutic Tablet PO SCH (09:08)
[2018-03-29] MEDS: Polyethylene Glycol 3350 17 GM Packet PO SCH (11:39)
[2018-03-29] MEDS: Insulin NovoLOG Aspart Correctional Sugar Inj SQ SCH ×4 (11:39→20:57)
--- NOTE | 2018-03-29 12:47 | P.PNCV ---
- Note CVT: Post Op Day #: 6 Subjective/Hospital Course: 72/ m recent [facility] 01/29/18 70% LM 100% Prox LAD, CX 80%, OM 95% , RCA 100% EF 30%m seen in office by Dr Glez , requested rescheduling of CABG 2/2 family issues . Now being electively admitted for surgery PMH: ischemic cardiomyopathy, CHF, HLP, HTN, DM EF 25-30% has declined Life vest in past 03/23 surgery : Preoperative Diagnosis (1) CAD (coronary artery disease (2) Combined systolic and diastolic congestive heart failure (3) Angina pectoris Procedure: CABG x 4 VACA to LAD - fair to poor SVG to OM1 - fair SVG to OM2 - fair SVG to PDA - fair EVH crystalloid 2300cc, 500cc celll saver, EBL 1000cc 03/24 extubated after surgery restarted on entresto / post EF 40% on coreg on Amio, ASA, statin transfer to stepdown unit 03/25 pt on room air chest tube drained > 200/ 12 hrs / will leave in place eval for removal in am 03/26 BP improved, pt feeling better CT 200cc/12 watery serous drainage gentle diuresis hopefully dc tube in am 03/27 pt drained > 400cc serous drainage from chest tube yesterday HGB stable will diuresis / recheck labs in am 03/28/18 No complaints, doing well ~250ml/12hrs from chest tubes 03/29/18 No complaints, doing well Continues to drain serous fluid from chest tubes - 160ml/12hrs Objective: Vital Signs - 24 hr 03/28/18 13:00 03/28/18 13:08 03/28/18 14:00 Temperature Pulse Rate 80 80 Respiratory Rate Blood Pressure Pulse Oximetry 95 03/28/18 15:00 03/28/18 16:00 03/28/18 17:00 Temperature 99.4 F Pulse Rate 81 83 90 Respiratory Rate 16 Blood Pressure 103/55 L Pulse Oximetry 100 03/28/18 18:00 03/28/18 19:00 03/28/18 20:00 Temperature 97.9 F Pulse Rate 84 77 82 Respiratory Rate 18 Blood Pressure 102/55 L Pulse Oximetry 99 99 03/28/18 21:00 03/28/18 22:00 03/28/18 23:00 Temperature 97.9 F Pulse Rate 80 80 84 Respiratory Rate 18 Blood Pressure 103/55 L Pulse Oximetry 97 03/29/18 00:00 03/29/18 01:00 03/29/18 02:00 Temperature Pulse Rate 80 78 78 Respiratory Rate 20 Blood Pressure Pulse Oximetry 03/29/18 03:00 03/29/18 04:00 03/29/18 05:00 Temperature 97.2 F L Pulse Rate 75 82 78 Respiratory Rate 18 Blood Pressure 102/55 L Pulse Oximetry 98 03/29/18 06:00 03/29/18 07:00 03/29/18 08:00 Temperature 97.6 F Pulse Rate 76 84 Respiratory Rate 18 Blood Pressure 124/59 L Pulse Oximetry 98 99 03/29/18 11:00 Temperature 97.5 F L Pulse Rate 84 Respiratory Rate 18 Blood Pressure 113/56 L Pulse Oximetry 98 Labs: Laboratory Results - last 12 hr 03/29/18 03/29/18 08:05 11:38 POC Glucose 98 92 Result Diagrams: 03/28/18 04:35 03/28/18 04:35 Imaging: Chest X-Ray 03/27/18 00:00 CONCLUSION: Satisfactory chest appearance. Cardiovascular: RRR Pulmonary: CTA GI/: NABS Incision: dry and intact - Plan (4) S/P CABG x 4 Plan: Neuro: stable pain control Resp : pulm toileting nebs ezpap , on room air CV: entresto, coreg on amio ASA scheduled diuresis GI: on GI prophy cardiac/ diabetic diet ENDO: , on insulin sliding scale Heme: monitor HGB / labs in am PT/ OOB Continue chest tubes D/C when they are out
[2018-03-29] MEDS: Acetaminophen 325 MG Tablet PO PRN (16:31)
[2018-03-30] MEDS: Amiodarone 200 MG Tablet PO SCH ×2 (08:33→20:07)
[2018-03-30] MEDS: Insulin NovoLOG Aspart Correctional Sugar Inj SQ SCH ×3 (08:34→20:06)
[2018-03-30] MEDS: Docusate Sodium 100 MG Capsule PO SCH ×2 (08:34→20:07)
[2018-03-30] MEDS: Multivitamin/Minerals Therapeutic Tablet PO SCH (08:34)
[2018-03-30] MEDS: Polyethylene Glycol 3350 17 GM Packet PO SCH (08:35)
[2018-03-30 14:58] LABS: Calcium 8.7 mg/dL (8.5-10.1); Carbon Dioxide 29.1 meq/L (21.0-32.0); Magnesium 2.1 mg/dL (1.5-2.5); Potassium 3.7 meq/L (3.5-5.1)
--- NOTE | 2018-03-30 15:13 | P.PNCV ---
- Note Subjective/Hospital Course: 72/ m recent [facility] 01/29/18 70% LM 100% Prox LAD, CX 80%, OM 95% , RCA 100% EF 30%m seen in office by Dr Glez , requested rescheduling of CABG 2/2 family issues . Now being electively admitted for surgery PMH: ischemic cardiomyopathy, CHF, HLP, HTN, DM EF 25-30% has declined Life vest in past 03/23 surgery : Preoperative Diagnosis (1) CAD (coronary artery disease (2) Combined systolic and diastolic congestive heart failure (3) Angina pectoris Procedure: CABG x 4 VACA to LAD - fair to poor SVG to OM1 - fair SVG to OM2 - fair SVG to PDA - fair EVH crystalloid 2300cc, 500cc celll saver, EBL 1000cc 03/24 extubated after surgery restarted on entresto / post EF 40% on coreg on Amio, ASA, statin transfer to stepdown unit 03/25 pt on room air chest tube drained > 200/ 12 hrs / will leave in place eval for removal in am 03/26 BP improved, pt feeling better CT 200cc/12 watery serous drainage gentle diuresis hopefully dc tube in am 03/27 pt drained > 400cc serous drainage from chest tube yesterday HGB stable will diuresis / recheck labs in am 03/28/18 No complaints, doing well ~250ml/12hrs from chest tubes 03/29/18 No complaints, doing well Continues to drain serous fluid from chest tubes - 160ml/12hrs 03/30 chest tube dc without difficulty f/u CXR pending in am continue diuresis on entresto , BB , ASA eval for dc in am Objective: Vital Signs - 24 hr 03/29/18 16:00 03/29/18 17:00 03/29/18 18:00 Temperature Pulse Rate 83 83 82 Respiratory Rate Blood Pressure Pulse Oximetry 03/29/18 19:00 03/29/18 20:00 03/29/18 20:10 Temperature 98.3 F Pulse Rate 87 86 Respiratory Rate 18 Blood Pressure 105/57 L Pulse Oximetry 98 96 03/29/18 21:00 03/29/18 22:00 03/29/18 23:00 Temperature 98.3 F Pulse Rate 80 82 85 Respiratory Rate 18 Blood Pressure 101/55 L Pulse Oximetry 97 03/30/18 00:00 03/30/18 01:00 03/30/18 02:00 Temperature Pulse Rate 80 76 76 Respiratory Rate Blood Pressure Pulse Oximetry 03/30/18 03:00 03/30/18 04:00 03/30/18 05:00 Temperature 98.0 F Pulse Rate 77 80 86 Respiratory Rate 18 Blood Pressure 97/59 L Pulse Oximetry 97 03/30/18 06:00 03/30/18 07:00 03/30/18 08:00 Temperature 98.0 F Pulse Rate 84 89 90 Respiratory Rate 18 Blood Pressure 124/61 Pulse Oximetry 100 100 03/30/18 09:00 03/30/18 10:00 03/30/18 10:57 Temperature Pulse Rate 96 H 92 H Respiratory Rate Blood Pressure Pulse Oximetry 98 03/30/18 11:00 03/30/18 12:00 03/30/18 13:00 Temperature 98.1 F Pulse Rate 92 H 97 H 76 Respiratory Rate 18 Blood Pressure 147/86 H Pulse Oximetry 100 03/30/18 14:00 03/30/18 15:00 Temperature 98.4 F Pulse Rate 80 85 Respiratory Rate 18 Blood Pressure 122/63 Pulse Oximetry 100 GENERAL: A&O x 3 SKIN: Warm and dry. prevena dressing to chest HEAD: Normocephalic. EYES: No scleral icterus. No injection or drainage. NECK: Supple, trachea midline. No JVD or lymphadenopathy. CARDIOVASCULAR: Regular rate and rhythm without murmurs, gallops, or rubs. RESPIRATORY: Breath sounds equal bilaterally. No accessory muscle use. faint basilar crackles GASTROINTESTINAL: Abdomen soft, non-tender, nondistended. MUSCULOSKELETAL: No cyanosis, or edema. BACK: Nontender without obvious deformity. No CVA tenderness. Labs: Laboratory Results - last 12 hr 03/30/18 03/30/18 03/30/18 07:34 11:45 12:47 Sodium 136 Potassium 3.7 Chloride 98 Carbon Dioxide 29.1 Anion Gap 9 BUN 17 Creatinine 0.89 Estimated GFR 84 L POC Glucose 116 H 101 Random Glucose 113 H Calcium 8.7 Magnesium 2.1 Result Diagrams: 03/28/18 04:35 03/30/18 12:47 Telemetry: NSR - Plan (4) S/P CABG x 4 Plan: Neuro: stable pain control Resp : pulm toileting nebs ezpap , on room air chest tubes dc without difficulty f/u CXR in am CV: entresto, coreg on amio ASA scheduled diuresis GI: on GI prophy cardiac/ diabetic diet ENDO: , on insulin sliding scale Heme: monitor HGB / labs in am PT/ OOB dc home in am
--- NOTE | 2018-03-30 15:26 | P.DS ---
Date of admission: 03/23/18 05:42 Primary care physician: Servando Matthews Attending physician on discharge: Gloria Glez Anticipated date of discharge: 03/31/18 Brief History from admission: 72/ m recent [facility] 01/29/18 70% LM 100% Prox LAD, CX 80%, OM 95% , RCA 100% EF 30%m seen in office by Dr Glez , requested rescheduling of CABG 2/2 family issues . Now being electively admitted for surgery PMH: ischemic cardiomyopathy, CHF, HLP, HTN, DM EF 25-30% has declined Life vest in past DS: Diagnosis - Discharge Diagnosis (1) CAD (coronary artery disease) Status: Acute (2) Combined systolic and diastolic congestive heart failure Status: Chronic (3) Angina pectoris Status: Acute (4) S/P CABG x 4 Status: Acute (5) Diabetes mellitus Status: Chronic (6) Acute blood loss anemia Status: Acute DS: Medications - Discharge Medications Prescriptions: amiodarone 200 mg PO Q12HR #28 tab carvedilol [Coreg] 3.125 mg PO BID #60 tab docusate sodium [DOK] 100 mg PO BID #30 cap furosemide 40 mg PO DAILY #30 tab zlwdaehh-jxzs-KP-calcium-mins [Thera M Plus (ferrous fumarat)] 1 tab PO DAILY # 30 tab oxycodone-acetaminophen 1 tab PO Q4H PRN #40 tab PRN Reason: Pain Scale 1 To 5 sacubitril-valsartan [Entresto] 1 tab PO BID #60 tab DS: Summary Hospital Course: 03/23 surgery : Preoperative Diagnosis (1) CAD (coronary artery disease (2) Combined systolic and diastolic congestive heart failure (3) Angina pectoris Procedure: CABG x 4 VACA to LAD - fair to poor SVG to OM1 - fair SVG to OM2 - fair SVG to PDA - fair EVH crystalloid 2300cc, 500cc celll saver, EBL 1000cc 03/24 extubated after surgery restarted on entresto / post EF 40% on coreg on Amio, ASA, statin transfer to stepdown unit 03/25 pt on room air chest tube drained > 200/ 12 hrs / will leave in place eval for removal in am 03/26 BP improved, pt feeling better CT 200cc/12 watery serous drainage gentle diuresis hopefully dc tube in am 03/27 pt drained > 400cc serous drainage from chest tube yesterday HGB stable will diuresis / recheck labs in am 03/28/18 No complaints, doing well ~250ml/12hrs from chest tubes 03/29/18 No complaints, doing well Continues to drain serous fluid from chest tubes - 160ml/12hrs 03/30 chest tube dc without difficulty f/u CXR pending in am continue diuresis on entresto , BB , ASA eval for dc in am - Time Spent with Patient Total time spent providing and/or coordinating discharge services: Greater than 30 minutes - Quality: VTE Deep Vein Thrombosis/Pulmonary Embolism Present on Admission: No Exam Vital signs: Vital Signs 03/29/18 16:00 03/29/18 17:00 03/29/18 18:00 Temperature Pulse Rate 83 83 82 Respiratory Rate Blood Pressure Pulse Oximetry 03/29/18 19:00 03/29/18 20:00 03/29/18 20:10 Temperature 98.3 F Pulse Rate 87 86 Respiratory Rate 18 Blood Pressure 105/57 L Pulse Oximetry 98 96 03/29/18 21:00 03/29/18 22:00 03/29/18 23:00 Temperature 98.3 F Pulse Rate 80 82 85 Respiratory Rate 18 Blood Pressure 101/55 L Pulse Oximetry 97 03/30/18 00:00 03/30/18 01:00 03/30/18 02:00 Temperature Pulse Rate 80 76 76 Respiratory Rate Blood Pressure Pulse Oximetry 03/30/18 03:00 03/30/18 04:00 03/30/18 05:00 Temperature 98.0 F Pulse Rate 77 80 86 Respiratory Rate 18 Blood Pressure 97/59 L Pulse Oximetry 97 03/30/18 06:00 03/30/18 07:00 03/30/18 08:00 Temperature 98.0 F Pulse Rate 84 89 90 Respiratory Rate 18 Blood Pressure 124/61 Pulse Oximetry 100 100 03/30/18 09:00 03/30/18 10:00 03/30/18 10:57 Temperature Pulse Rate 96 H 92 H Respiratory Rate Blood Pressure Pulse Oximetry 98 03/30/18 11:00 03/30/18 12:00 03/30/18 13:00 Temperature 98.1 F Pulse Rate 92 H 97 H 76 Respiratory Rate 18 Blood Pressure 147/86 H Pulse Oximetry 100 03/30/18 14:00 03/30/18 15:00 Temperature 98.4 F Pulse Rate 80 79 Respiratory Rate 18 Blood Pressure 122/63 Pulse Oximetry 100 Intake & Output 03/29/18 03/30/18 03/30/18 18:59 06:59 18:59 Intake Total 480 / 480 Output Total 1470 / 1470 1760 / 1760 Balance -1470 / -1470 -1280 / -1280 Weight 82 kg Intake: Oral 480 / 480 Output: Urine 1250 / 1250 1750 / 1750 Chest Tube Drainage 220 / 220 #1 Anterior Y Connected 220 / 220 Other: Date of Last Bowel Movement 03/29/18 03/29/18 03/29/18 # Bowel Movements 1 - Constitutional no acute distress - Routine HEENT Exam Head: Present: normocephalic, atraumatic Eye: Present: EOMI, PERRL, normal accommodation - Routine Neck Exam Present: supple, full ROM - Routine Chest/Breast/Axilla Exam Chest wall: Present: tenderness - Routine Respiratory Exam Present: CTA bilaterally - Routine Cardiovascular Exam Present: RRR, S1, S2 Comments: + 1 edema lower ext - Routine Abdominal Exam Present: soft, normoactive bowel sounds - Routine Extremities Exam Present: edema, full ROM, pulses intact, normal capillary refill - Routine Skin Exam Present: intact, wounds Comments: prevena dressing to chest , incision intact to left leg - Routine Neurological Exam Present: alert, oriented X3, CN II-XII intact Results Procedures completed during hospitalization: Preoperative Diagnosis (1) CAD (coronary artery disease) (2) Combined systolic and diastolic congestive heart failure (3) Angina pectoris Postoperative Diagnosis: same Date of procedure: 03/23/18 Procedure: CABG x 4 VACA to LAD - fair to poor SVG to OM1 - fair SVG to OM2 - fair SVG to PDA - fair EVH Anesthesia: GETA Surgeon: Labs on day of discharge: Labs from last 24 hours 03/30/18 03/30/18 03/30/18 12:47 11:45 07:34 Sodium 136 Potassium 3.7 Chloride 98 Carbon Dioxide 29.1 Anion Gap 9 BUN 17 Creatinine 0.89 Estimated GFR 84 L POC Glucose 101 116 H Random Glucose 113 H Calcium 8.7 Magnesium 2.1 03/29/18 03/29/18 19:38 17:33 Sodium Potassium Chloride Carbon Dioxide Anion Gap BUN Creatinine Estimated GFR POC Glucose 158 H 134 H Random Glucose Calcium Magnesium - Impressions ITS Impressions Chest X-Ray 03/27/18 00:00 CONCLUSION: Satisfactory chest appearance. Discharge Plan - Discharge Disposition Patient Disposition: Disch W/Home Health Service - Discharge Condition Condition: Good - Discharge Order Discharge Orders: Discharge Order (Routine); Ordered 03/31/18 Ordered By: Claritza Paredes - Discharge Details Anticipated Discharge Date: 03/31/18 - Physicians Team Primary Care Provider: Servando Matthews Attending Provider: Gloria Glez Other Providers: Brandt Carlton - Rxs /Orders / Referrals /Forms Prescriptions: New amiodarone 200 mg Tablet 200 mg PO Q12HR Qty: 28 RF: 0 carvedilol [Coreg] 3.125 mg Tablet 3.125 mg PO BID Qty: 60 RF: 2 docusate sodium [DOK] 100 mg Capsule 100 mg PO BID Qty: 30 RF: 0 cvzacyaa-mflc-CG-calcium-mins [Thera M Plus (ferrous fumarat)] 9 mg iron-400 mcg Tablet 1 tab PO DAILY Qty: 30 RF: 2 oxycodone-acetaminophen 5-325 mg Tablet 1 tab PO Q4H PRN (Reason: Pain Scale 1 To 5) Qty: 40 RF: 0 potassium chloride [Klor-Con] 20 mEq Packet 20 meq PO DAILY Qty: 30 RF: 0 sacubitril-valsartan [Entresto] 24-26 mg Tablet 1 tab PO BID Qty: 60 RF: 2 Continue aspirin [Adult Low Dose Aspirin] 81 mg Tablet,Delayed Release (Dr/Ec) 81 mg PO DAILY Qty: 90 RF: 0 furosemide 40 mg Tablet 40 mg PO DAILY Qty: 30 RF: 0 lovastatin 20 mg Tablet 20 mg PO DAILY metformin 500 mg Tablet 500 mg PO BID Qty: 0 RF: 0 Discontinued carvedilol 6.25 mg Tablet 6.25 mg PO BID hydrochlorothiazide 25 mg Tablet 25 mg PO DAILY potassium chloride 10 mEq Tablet Extended Release 10 meq PO DAILY sacubitril-valsartan [Entresto] 49-51 mg Tablet 1 tab PO BID Ambulatory Orders / Order Sets / DME: XR chest 2V PA&LAT (Routine) Timeframe: 2 Weeks Location: Determined by Patient Ordered By: Claritza Paredes Basic Metabolic Panel (Routine) Timeframe: 2 Weeks Location: Determined by Patient Ordered By: Claritza Paredes Complete Blood Count NO Diff (Routine) Timeframe: 2 Weeks Location: Determined by Patient Ordered By: Claritza Paredes Referrals: Noel Jose MD [Physician] - See Instructions ( Your appointment has been scheduled for [04/22/18] at [8:30 am] If you cannot make this appointment, please call the office to reschedule ) Claritza Paredes [ADVANCE RN PRACTITIONER] - See Instructions ( Your appointment has been scheduled for [04/16/18] at [10:45 am] If you cannot make this appointment, please call the office to reschedule ) Servando Matthews DO [Primary Care Provider] - See Instructions ( Your appointment has been scheduled for [04/08/18] at [3:00 PM] If you cannot make this appointment, please call the office to reschedule ) - Discharge Instructions Patient Printed Instructions: CABG (Coronary Artery Bypass Graft) (DC) Additional Instructions: PREVENA Single Use Negative Wound Therapy System Caregiver Instruction Sheet 1. A Prevena dressing system was applied to the chest incision during surgery , to promote wound healing. It works via a suction device (negative pressure wound therapy) to remove low to moderate levels of exudate (drainage) and infectious materials. We recommend that the device stay in place for up to seven days, from day of surgery. 2. Day of Surgery___03/23/18 Day of Removal ___03/30/18 3. The dressing should only be removed by a health senior resident care director. Please arrange removal of device to coincide with Home Health visit and or with Nursing staff at Rehab 4. If skin reddening or irritation of skin occurs, or excessive drainage, please notify the Cardiovascular Surgeons office at [phone]. 5. Light showering is permissible; however the pump should be disconnected and placed in safe location, where it will not get wet. The dressing should not be exposed to direct spray or submerged in water. No bath tub / shower only. Ensure the end of the tubing attached to the dressing is facing down so that water does not enter the top of the tube. 6. To remove Prevena dressing: press purple button to turn off device / remove the suction. Then disconnect the tubing from the pump. The fixation strips should be stretched away from the skin and the dressing lifted at one corner and peeled back until it has been fully removed. 7. After removal, it is ok to shower daily using liquid dial soap and clean wash cloth, rinse and pat dry, and leave incision open to air dry. For any concerns regarding Prevena dressing, and or wounds, please contact Katrina Covington, patient navigator at [phone] or notify the Cardiovascular Surgeons office at [phone]. Incentive spirometry Q1 hr x 10, while awake, also use acapella device hourly whole awake Sternal Breast Bone Precautions: NO pushing or pulling, ( pt must use sternal pillow to support chest with all activities and with coughing ( takes up to 3 months breast bone to heal ) Daily incision care: ok to shower daily, no tub bath. Wash all incisions with liquid dial soap, clean wash cloth to each site, rinse and pat dry. Observe for any signs of infection, such as drainage which is dark yellow, robertson, green or foul smelling. Immediately report to the surgeon any drainage from the chest incision, or legs, and for any abnormal drainage from the chest tube sites. Notify surgeon if any temp >101.5 degrees F. When specialty dressing removed/ or if you do not have one, continue to shower daily as above, then rinse and pat incision dry and paint with betadine daily x 5 days. Allow steri strips to fall off if you have any. Avoid lotions, creams, salves, oils, etc. for the first month Please see attached forms for additional instructions regarding post Open Heart specialty wound vacuum dressings. ALVAREZ or Prevena , Dressing to be removed by Nursing staff on ___03/30/18____ For Dr. Glez patients , please obtain CBC, BMP, PA & Lat CXR in 2 weeks, results to Dr. Glez ( prescription will be given) ( ) (Tele: [phone]) , F/U appointment: as per [place] instructions: PCP in 2 weeks, CV surgeon 2 weeks, Infantry Weapons Crewmember 3-4 weeks For any questions regarding incisions/ dressing / meds / post op care or above Symptoms, Friday 8am-5pm Heart & Vascular Surgery Office ( Dr. Centeno & Dr. Glez), After Hours / Nights (5pm -8am) Weekends and Holidays Please call [facility] Cardiac Intermediate Care Unit (CIC) Charge Nurse
--- NOTE | 2018-03-31 04:51 | XR ---
EXAM DATE: 03/31/2018 4:35 AM EST AGE/SEX: 72 years / Male INDICATIONS: Short of breath. CLINICAL DATA: This is the patient's subsequent encounter. Patient reports that signs and symptoms h ave been present for 1 week and indicates a pain score of 0/10. MEDICAL/SURGICAL HISTORY: . Hypercholesterolemia. Hypertension. CAD. Heart failure. CABG. COMPARISON: [facility], CHEST 1V SINGLE AP, 03/24/2018. . FINDINGS: Left-sided chest tube has been removed. No significant pneumothorax. Left subclavian central line has been removed. Improved aeration in the lower lung zones. Cardiomediastinal contours are stable. Rosi gen of the exam is unchanged. CONCLUSION: 1. Interval removal of lines and tubes. 2. Improved aeration in the lower lung zones. Electronically signed by: Tank Hartmann MD Board Certified Radiologist 03/31/2018 4:49 AM EST
[2018-03-31] MEDS: Docusate Sodium 100 MG Capsule PO SCH (08:42)
[2018-03-31] MEDS: Insulin NovoLOG Aspart Correctional Sugar Inj SQ SCH (08:42)
[2018-03-31] MEDS: Multivitamin/Minerals Therapeutic Tablet PO SCH (08:42)
[2018-03-31] MEDS: Amiodarone 200 MG Tablet PO SCH (08:42)
[2018-03-31] MEDS: Polyethylene Glycol 3350 17 GM Packet PO SCH (08:43)
--- NOTE | 2018-03-31 09:53 | P.PNCV ---
- Note Subjective/Hospital Course: 72/ m recent [facility] 01/29/18 70% LM 100% Prox LAD, CX 80%, OM 95% , RCA 100% EF 30%m seen in office by Dr Glez , requested rescheduling of CABG 2/2 family issues . Now being electively admitted for surgery PMH: ischemic cardiomyopathy, CHF, HLP, HTN, DM EF 25-30% has declined Life vest in past 03/23 surgery : Preoperative Diagnosis (1) CAD (coronary artery disease (2) Combined systolic and diastolic congestive heart failure (3) Angina pectoris Procedure: CABG x 4 VACA to LAD - fair to poor SVG to OM1 - fair SVG to OM2 - fair SVG to PDA - fair EVH crystalloid 2300cc, 500cc celll saver, EBL 1000cc 03/24 extubated after surgery restarted on entresto / post EF 40% on coreg on Amio, ASA, statin transfer to stepdown unit 03/25 pt on room air chest tube drained > 200/ 12 hrs / will leave in place eval for removal in am 03/26 BP improved, pt feeling better CT 200cc/12 watery serous drainage gentle diuresis hopefully dc tube in am 03/27 pt drained > 400cc serous drainage from chest tube yesterday HGB stable will diuresis / recheck labs in am 03/28/18 No complaints, doing well ~250ml/12hrs from chest tubes 03/29/18 No complaints, doing well Continues to drain serous fluid from chest tubes - 160ml/12hrs 03/30 chest tube dc without difficulty f/u CXR pending in am continue diuresis on entresto , BB , ASA eval for dc in am 03/31 cxr noted / unremarkable on room air, rhythm stable will dc home today Objective: Vital Signs - 24 hr 03/30/18 10:00 03/30/18 10:57 03/30/18 11:00 Temperature 98.1 F Pulse Rate 92 H 92 H Respiratory Rate 18 Blood Pressure 147/86 H Pulse Oximetry 98 100 03/30/18 12:00 03/30/18 13:00 03/30/18 14:00 Temperature Pulse Rate 97 H 76 80 Respiratory Rate Blood Pressure Pulse Oximetry 03/30/18 15:00 03/30/18 16:00 03/30/18 17:00 Temperature 98.4 F Pulse Rate 79 87 88 Respiratory Rate 18 Blood Pressure 122/63 Pulse Oximetry 100 03/30/18 18:00 03/30/18 19:00 03/30/18 20:00 Temperature 97.5 F L Pulse Rate 92 H 87 84 Respiratory Rate 18 Blood Pressure 111/57 L Pulse Oximetry 100 97 03/30/18 21:00 03/30/18 22:00 03/30/18 23:00 Temperature 97.8 F Pulse Rate 84 60 87 Respiratory Rate 18 Blood Pressure 92/51 L Pulse Oximetry 97 03/31/18 00:00 03/31/18 01:00 03/31/18 02:00 Temperature Pulse Rate 86 80 82 Respiratory Rate Blood Pressure Pulse Oximetry 03/31/18 03:00 03/31/18 04:00 03/31/18 05:00 Temperature 98 F Pulse Rate 84 89 82 Respiratory Rate 18 Blood Pressure 111/56 L Pulse Oximetry 97 03/31/18 06:00 03/31/18 07:00 03/31/18 07:31 Temperature 97.7 F Pulse Rate 81 82 Respiratory Rate 18 Blood Pressure 116/58 L Pulse Oximetry 100 97 GENERAL: A&O x 3 SKIN: Warm and dry. sternal incision intact and well approximated , incision intact to left leg , HEAD: Normocephalic. EYES: No scleral icterus. No injection or drainage. NECK: Supple, trachea midline. No JVD or lymphadenopathy. CARDIOVASCULAR: Regular rate and rhythm without murmurs, gallops, or rubs. faint lower ext edema RESPIRATORY: Breath sounds equal bilaterally. No accessory muscle use. GASTROINTESTINAL: Abdomen soft, non-tender, nondistended. MUSCULOSKELETAL: No cyanosis, or edema. BACK: Nontender without obvious deformity. No CVA tenderness. Labs: Laboratory Results - last 12 hr 03/31/18 07:39 POC Glucose 104 Result Diagrams: 03/28/18 04:35 03/30/18 12:47 - Plan (4) S/P CABG x 4 Plan: Neuro: stable pain control Resp : pulm toileting nebs ezpap , on room air chest tubes dc without difficulty f/u CXR in am CV: entresto, coreg on amio ASA scheduled diuresis GI: on GI prophy cardiac/ diabetic diet ENDO: , on insulin sliding scale Heme: monitor HGB / labs in am PT/ OOB dc home today
--- NOTE | 2018-03-31 14:43 | P.DCO ---
- Diagnosis (1) CAD (coronary artery disease) Status: Acute (2) Combined systolic and diastolic congestive heart failure Status: Chronic (3) S/P CABG x 4 Status: Acute (4) Diabetes mellitus Status: Chronic - Home Health Nursing Order: Medical education, Signs/symptoms of disease process, Wound care and dressing changes, Nursing assessment with vital signs Instructions: Incentive spirometry Q1 hr x 10, while awake, also use acapella device hourly whole awake Sternal Breast Bone Precautions: NO pushing or pulling, ( pt must use sternal pillow to support chest with all activities and with coughing ( takes up to 3 months breast bone to heal ) Daily incision care: ok to shower daily, no tub bath. Wash all incisions with liquid dial soap, clean wash cloth to each site, rinse and pat dry. Observe for any signs of infection, such as drainage which is dark yellow, robertson, green or foul smelling. Immediately report to the surgeon any drainage from the chest incision, or legs, and for any abnormal drainage from the chest tube sites. Notify surgeon if any temp >101.5 degrees F. When specialty dressing removed/ or if you do not have one, continue to shower daily as above, then rinse and pat incision dry and paint with betadine daily x 5 days. Allow steri strips to fall off if you have any. Avoid lotions, creams, salves, oils, etc. for the first month+ For Dr. Glez patients , please obtain CBC, BMP, PA & Lat CXR in 2 weeks, results to Dr. Glez ( prescription will be given) ( ) (Tele: [phone]) , Valve replacement pts will need 2decho in 2 weeks with results to Dr. Glez . Please obtain 2 d echo at your manufacturing director office if possible F/U appointment: as per [place] instructions: PCP in 2 weeks, CV surgeon 2 weeks, Zoning Administrator 3-4 weeks For any questions regarding incisions/ dressing / meds / post op care or above Symptoms, Friday 8am-5pm Heart & Vascular Surgery Office ( Dr. Centeno & Dr. Glez), After Hours / Nights (5pm -8am) Weekends and Holidays Please call [facility] Cardiac Intermediate Care Unit (CIC) Charge Nurse Heart and Vascular Surgery patients *Special attention to sternal dressing Mandatory frequency Assess and evaluation, 4 days in a row The next week 3X week 2 times a week for 4 weeks 1 time a week for 5 weeks Schedule Heart and Vascular patients for full 60 day certification period Initial visit Review Open Heart Surgery Discharge Instructions (Sternal precautions, Activity, Elastic hose, Incision care, Driving, Incentive spirometry, Smoking, [place], Work and other) Need Betadine to paint incision Medication reconciliation Importance of follow up care/ check on appointments Make calendar record temperature daily When to call [facility] nurse, review instructions, phone list Incentive Spirometry, demonstration Visit 1- Begin discharge instruction for patient family and/ or caregiver using teach back method- Signs and symptoms of infection Disease characteristics Medicines and side effects Foods and nutrition/ appetite Infection control/ hand washing/ hygiene Visit 2- Continue teaching Discharge instructions- include additional information on smoking cessation , sternal dressing (sternal vac) Visit 3- Continue teaching- Cough and deep breathing, incision monitoring. Choose my plate Visit 4- Continue teaching- Discuss limitations Discuss how they are feeling Discuss progress toward goals Remaining visits- continue teaching and monitoring For any questions please call : Friday 8am-5pm Heart & Vascular Surgery Office ( Dr. Centeno & Dr. Glez), After Hours / Nights (5pm -8am) Weekends and Holidays Please call [facility] Cardiac Intermediate Care Unit (CIC) Charge Nurse - Case Management Consult Case Management Consult-Home Health: Yes - Certification I have seen patient Louis Garcia on 03/31/18. My clinical findings support the need for the requested home health care services because: Deconditioned with increased weakness I certify that my clinical findings support that this patient is homebound because: Post-op weakness
== END 2018-03-31 11:07 | disposition home health service (06) | DRG 236 ==
LOC: HSDI 03-23 05:42 → HCVI 03-23 12:50 → HCPC 03-24 11:27
PROVIDERS: ADMIT Thoracic Surgery (Cardiothoracic Vascular Surgery); ATTEND Thoracic Surgery (Cardiothoracic Vascular Surgery)
CPT/HCPCS: 31500; 36430; 71010; 71020; 71045; 71046; 80048; 82948; 82962; 83735; 85025; 85027; 86850; 86900; 86901; 86923; 93312; 93318; 94150; 94640; 94650; 94651; 94664; 94665; 94667; 97110; 97116; 97162; 97530; J0131; J1644; J1815; J1817; J1940; J2150; J2250; J2440; J2765; J2930; J3010; J3370; J3475; J3480; J7040; J7050; J7120; P9016; P9045; P9047